=== PATIENT | male | born 1950 | race Caucasian/White ===

== ENCOUNTER 2023-10-02 15:09 | Outpatient (RCR) | payer OTHER, SELFPAY ==
[2023-09-04 13:11] LABS: Glucose - Point of Care 177 mg/dl (70-99)
[2023-09-04 14:01] LABS: Glucose - Point of Care 137 mg/dl (70-99)
== END 2023-10-02 23:59 | disposition home or self-care (01) ==
LOC: CRHB 15:09
PROVIDERS: ATTENDING PHYSICIAN Thoracic Surgery (Cardiothoracic Vascular Surgery); FAMILY PHYSICIAN Family Medicine
DX: I25.10 Atherosclerotic heart disease of native coronary artery without angina pectoris (principal); Z95.1 Presence of aortocoronary bypass graft
CPT/HCPCS: 82962; G0422; G0423

== ENCOUNTER 2023-10-30 14:58 | Outpatient (RCR) | payer OTHER, SELFPAY | END 2023-10-30 23:59 | disposition home or self-care (01) | LOC: CRHB 14:58 | PROVIDERS: ATTENDING PHYSICIAN Thoracic Surgery (Cardiothoracic Vascular Surgery); FAMILY PHYSICIAN Family Medicine | DX: Z95.1 Presence of aortocoronary bypass graft (principal); I25.10 Atherosclerotic heart disease of native coronary artery without angina pectoris (principal) | CPT/HCPCS: G0422; G0423 ==

== ENCOUNTER 2023-11-29 13:19 | Outpatient (RCR) | payer OTHER, SELFPAY | END 2023-11-29 23:59 | disposition home or self-care (01) | LOC: CRHB 13:19 | PROVIDERS: ATTENDING PHYSICIAN Thoracic Surgery (Cardiothoracic Vascular Surgery) | DX: Z95.1 Presence of aortocoronary bypass graft (principal) | CPT/HCPCS: G0422; G0423 ==

== ENCOUNTER 2023-12-09 13:19 | Outpatient (RCR) | payer OTHER, SELFPAY | END 2023-12-09 23:59 | disposition home or self-care (01) | LOC: CRHB 13:19 | PROVIDERS: ATTENDING PHYSICIAN Thoracic Surgery (Cardiothoracic Vascular Surgery); FAMILY PHYSICIAN Family Medicine | DX: I25.10 Atherosclerotic heart disease of native coronary artery without angina pectoris (principal); Z95.1 Presence of aortocoronary bypass graft | CPT/HCPCS: G0422; G0423 ==